=== PATIENT | female | born 1945 | race Asian ===

== ENCOUNTER 2021-03-31 10:41 | Day surgery (SDC) | payer OTHER ==
[~2021-03-31] VITALS: Ht 160 cm; Wt 59.0 kg
[~2021-03-31 10:41] MED LIST: CEPH500 PO; CETI10 PO; DIPH50 PO; EPIN.3I IM
--- NOTE | 2021-03-31 12:13 | NUR ---
Ambulatory in [facility] warming gown applied. History, Chart, Medications and Allergies reviewed before start of procedure.Lungs clear T/O to Auscultation. Patient confirms NPO status and agrees with scheduled surgery. Pre-Op teaching done. Pt verbalizes understanding. Patient States Post-Procedure ride home has been arranged. Patient reports completing Chlorhexadine shower X2 prior to admission to hospital.
--- NOTE | 2021-03-31 15:25 | NUR ---
PT TOLERATING PO FLUIDS AND SOLIDS. ABLE TO HELP REPOSITION SELF IN BED TO SIT UP. REPORTS PAIN IS DECREASING SINCE LEAVING PACU. CAPILLARY REFIL = 2 IN RIGHT EXTREMETIES.
--- NOTE | 2021-03-31 16:18 | NUR ---
Ambulatory in Day Surgery Discharge instructions reviewed with patient. Patient verbalizes understanding. Copy given to patient to take home. Patient States Post-Procedure ride home has been arranged. Discharged via wheelchair to private car for ride home. ALL BELONGINGS RETURNED TO PATIENT - TWO BAGS BROUGHT FROM HOME OF BELONGINGS AND PHONE.
== END 2021-03-31 23:54 | disposition home or self-care (01) ==
LOC: ORSCMMR 10:41
PROVIDERS: Orthopaedic Surgery
PROC: 0PSH04Z Reposition Right Radius with Internal Fixation Device, Open Approach (ICD-10-PCS; principal; 2021-03-31 13:00)
DX: S52.591A Other fractures of lower end of right radius, initial encounter for closed fracture (principal)
CPT/HCPCS: C1713; J0171; J0690; J1100; J1885; J2250; J2405; J2704; J3010; J7120